=== PATIENT | female | born 1955 ===

== ENCOUNTER 2024-01-09 15:55 | Outpatient (CLI) | payer MEDICARE, SELFPAY ==
--- NOTE | 2024-01-09 16:04 | XRR_ITS ---
PROCEDURE INFORMATION: Exam: XR Left Ankle Exam date and time: 01/09/2024 4:08 PM Age: 68 years old Clinical indication: Pain; Ankle; Left; Additional info: Left ankle instability TECHNIQUE: Imaging protocol: Radiologic exam of the left ankle. Views: 1 or 2 views. COMPARISON: No relevant prior studies available. FINDINGS: Bones/joints: There is mild marginal irregularity at the tip of the distal fibula with no discrete fracture. This may not be acute. If clinically warranted, an oblique view may provide more definitive information. The ankle is otherwise normal. Soft tissues: Normal. XR/XR ankle LT 2V [id number] IMPRESSION: As above.
== END 2024-01-09 15:56 | disposition home or self-care (01) ==
LOC: RAD 16:00
PROVIDERS: PCP Nurse Practitioner Family; Visit Provider Nurse Practitioner Family
DX: M25.372 Other instability, left ankle (principal)
CPT/HCPCS: 73600

== ENCOUNTER → 2025-06-20 10:30 | Outpatient (BNVA) | payer MEDICARE, SELFPAY | PROVIDERS: PCP Nurse Practitioner Family; Referring Provider Internal Medicine; Visit Provider Internal Medicine | DX: R94.2 Abnormal results of pulmonary function studies (principal); R06.02 Shortness of breath; R05.3 Chronic cough; R06.83 Snoring; R53.83 Other fatigue; T78.40XA Allergy, unspecified, initial encounter; X58.XXXA Exposure to other specified factors, initial encounter; G47.33 Obstructive sleep apnea (adult) (pediatric); J44.9 Chronic obstructive pulmonary disease, unspecified | CPT/HCPCS: 86003; 99204; Q3014 ==

== ENCOUNTER 2025-08-05 12:54 | Outpatient (CLI) | payer MEDICARE, SELFPAY | END 2025-08-05 12:55 | disposition home or self-care (01) | LOC: SLEEP 12:56 | PROVIDERS: PCP Nurse Practitioner Family; Referring Provider Internal Medicine; Visit Provider Internal Medicine Pulmonary Disease | DX: G47.33 Obstructive sleep apnea (adult) (pediatric) (principal); R09.02 Hypoxemia | CPT/HCPCS: G0399 ==